=== PATIENT | female | born 1960 | race Two or more races ===

== ENCOUNTER 2019-05-05 23:04 | Emergency (ER) | payer BC, OTHER ==
[~2019-05-05] VITALS: Ht 165.1 cm; Wt 74.8 kg
[2019-05-05] MEDS ORDERED: [UNRECOGNIZED DRUG - OTHER] (23:24)
== END 2019-05-06 00:19 | disposition home or self-care (01) ==
LOC: ER 23:04
DX: S61.422A Laceration with foreign body of left hand, initial encounter (principal); W26.8XXA Contact with other sharp object(s), not elsewhere classified, initial encounter; Y93.89 Activity, other specified; Y92.018 Other place in single-family (private) house as the place of occurrence of the external cause; Y99.8 Other external cause status